=== PATIENT | male | born 1945 | race Caucasian/White ===

== ENCOUNTER 2019-09-22 16:28 | Emergency (ER) | payer MEDICARE, MEDICAID ==
[~2019-09-22 16:28] MED LIST: CARV3.123 PO; FURO20TA4 PO; LISI2.5T2 PO; OMEP40CA13 PO; POTA10TA15 PO; PRAV40TA3 PO; RIVA20TA PO
[2019-09-22] MEDS ORDERED: pantoprazole 40MG/NS 100ML BAG 100 ML IV ONE (19:10)
[2019-09-22] MEDS ORDERED: pantoprazole 40 MG vial IV ONE (19:10)
[2019-09-22 19:19] LABS: BASOPHILS # (AUTO) 0.1 X10'3 (0-0.2); EOSINOPHILS # (AUTO) 0.3 X10'3 (0-0.9); EOSINOPHILS % (AUTO) 2.6 % (0-6); HEMATOCRIT 29.6 % (42.0-52.0); LYMPHOCYTES # (AUTO) 2.1 X10'3 (1.1-4.8); MEAN CORPUSCULAR HEMOGLOBIN 32.2 PG (27.0-31.0); MEAN CORPUSCULAR HGB CONC 33.7 g/dL (33.0-36.5); MEAN CORPUSCULAR VOLUME 95.6 FL (78-98); MEAN PLATELET VOLUME 10.1 FL (7.4-10.4); MONOCYTES % (AUTO) 8.3 % (2-12); NEUTROPHILS # (AUTO) 8.3 X10'3 (1.8-7.7); NEUTROPHILS % (AUTO) 70.1 % (42-75); PLATELET COUNT 224 X10'3 (140-440); RED CELL DISTRIBUTION WIDTH 16.8 % (11.5-14.5); WHITE BLOOD COUNT 11.8 X10'3 (4.5-11.0)
[2019-09-22 19:26] LABS: PARTIAL THROMBOPLASTIN TIME 37 SECONDS (22-32)
[2019-09-22 19:28] LABS: ALANINE AMINOTRANSFERASE 32 U/L (12-78); ALBUMIN 4.6 G/DL (3.4-5.0); ALBUMIN/GLOBULIN RATIO 1.2 (1.1-1.5); ALKALINE PHOSPHATASE 140 IU/L (46-116); ANION GAP 13 (8-16); ASPARTATE AMINO TRANSFERASE 21 U/L (10-37); BILIRUBIN,TOTAL 0.9 MG/DL (0.1-1.0); BLOOD UREA NITROGEN 36 MG/DL (7-18); BUN/CREATININE RATIO 24.8 (5.4-32.0); CALCIUM 9.6 MG/DL (8.5-10.1); CHLORIDE 103 MMOL/L (99-107); CREATININE 1.45 MG/DL (0.60-1.10); GLUCOSE 97 MG/DL (70-104); SODIUM 140 MMOL/L (135-145); TOTAL CARBON DIOXIDE 24.1 MMOL/L (24-32); TOTAL PROTEIN 8.4 G/DL (6.4-8.2); eGFR 48 ML/MIN
--- NOTE | 2019-09-22 19:40 | NUR ---
JILL CHADWICK AT BEDSIDE FOR RECTAL EXAM.
--- NOTE | 2019-09-22 19:50 | NUR ---
PER [facility] CLINICAL UNIT EDUCATOR, "HOLD" OFF ON PROTONIX DRIP AND IVP DUE TO POSITIVE STOOL SAMPLE.
[2019-09-22 20:08] VITALS: BP 131/54
[2019-09-22 20:40] LABS: TOTAL CELLS COUNTED 100
[2019-09-22 20:41] LABS: ANISOCYTOSIS 1+; PLATELET ESTIMATE NORMAL; POLYCHROMASIA FEW
[2019-09-22 20:42] LABS: POIKILOCYTOSIS FEW; SPHEROCYTES FEW
== END 2019-09-22 20:26 | disposition home or self-care (01) ==
LOC: ER 16:29
DX: K92.1 Melena (principal); I48.91 Unspecified atrial fibrillation; I25.10 Atherosclerotic heart disease of native coronary artery without angina pectoris; I50.9 Heart failure, unspecified; J44.9 Chronic obstructive pulmonary disease, unspecified; E11.9 Type 2 diabetes mellitus without complications; Z95.1 Presence of aortocoronary bypass graft; Z95.0 Presence of cardiac pacemaker; Z88.8 Allergy status to other drugs, medicaments and biological substances; Z79.899 Other long term (current) drug therapy
CPT/HCPCS: 36415; 71045; 80053; 84484; 85025; 85610; 85730; 86885; 86900; 86901; 93005; 99284; C9113

== ENCOUNTER 2019-10-22 13:48 | Emergency (ER) | payer MEDICARE, MEDICAID ==
[~2019-10-22] VITALS: Ht 182.9 cm; Wt 90.0 kg
[2019-10-22] MEDS ORDERED: ATOR20TA PO (14:31)
[2019-10-22 14:34] LABS: BASOPHILS # (AUTO) 0.1 X10'3 (0-0.2); BASOPHILS % (AUTO) 0.9 % (0-1); EOSINOPHILS # (AUTO) 0.4 X10'3 (0-0.9); EOSINOPHILS % (AUTO) 5.1 % (0-6); HEMATOCRIT 26.1 % (42.0-52.0); HEMOGLOBIN 8.5 g/dl (14.0-17.9); LYMPHOCYTES # (AUTO) 1.5 X10'3 (1.1-4.8); LYMPHOCYTES % (AUTO) 20.1 % (21-51); MEAN CORPUSCULAR HEMOGLOBIN 28.6 PG (27.0-31.0); MEAN CORPUSCULAR HGB CONC 32.4 g/dL (33.0-36.5); MEAN CORPUSCULAR VOLUME 88.3 FL (78-98); MEAN PLATELET VOLUME 8.6 FL (7.4-10.4); MONOCYTES # (AUTO) 0.7 X10'3 (0-0.9); MONOCYTES % (AUTO) 9.1 % (2-12); NEUTROPHILS # (AUTO) 4.7 X10'3 (1.8-7.7); NEUTROPHILS % (AUTO) 64.8 % (42-75); PLATELET COUNT 304 X10'3 (140-440); RED BLOOD COUNT 2.96 X10'6 (4.70-6.10); RED CELL DISTRIBUTION WIDTH 20.1 % (11.5-14.5); WHITE BLOOD COUNT 7.3 X10'3 (4.5-11.0)
[2019-10-22 14:41] LABS: PARTIAL THROMBOPLASTIN TIME 42 SECONDS (22-32)
[2019-10-22 15:39] LABS: ANISOCYTOSIS 3+; HYPOCHROMASIA 1+; PLATELET ESTIMATE NORMAL
[2019-10-22 15:40] LABS: LARGE PLATELETS FEW
[2019-10-22 16:00] LABS: ALANINE AMINOTRANSFERASE 30 U/L (12-78); ALBUMIN 3.9 G/DL (3.4-5.0); ALBUMIN/GLOBULIN RATIO 1.1 (1.1-1.5); ALKALINE PHOSPHATASE 140 IU/L (46-116); ANION GAP 9 (8-16); ASPARTATE AMINO TRANSFERASE 18 U/L (10-37); BILIRUBIN,TOTAL 0.7 MG/DL (0.1-1.0); BLOOD UREA NITROGEN 25 MG/DL (7-18); BUN/CREATININE RATIO 17.9 (5.4-32.0); CALCIUM 9.2 MG/DL (8.5-10.1); CHLORIDE 107 MMOL/L (99-107); GLUCOSE 90 MG/DL (70-104); POTASSIUM 4.5 MMOL/L (3.5-5.1); SODIUM 141 MMOL/L (135-145); TOTAL CARBON DIOXIDE 25.3 MMOL/L (24-32); TOTAL PROTEIN 7.6 G/DL (6.4-8.2); eGFR 50 ML/MIN
[2019-10-22 16:30] VITALS: BP 135/66
[2019-10-22] MEDS ORDERED: MULT-1085 PO (16:53)
== END 2019-10-22 16:58 | disposition home or self-care (01) ==
LOC: ER 13:49
DX: D64.9 Anemia, unspecified (principal); G47.00 Insomnia, unspecified; R06.02 Shortness of breath; I48.91 Unspecified atrial fibrillation; I25.10 Atherosclerotic heart disease of native coronary artery without angina pectoris; I50.9 Heart failure, unspecified; J44.9 Chronic obstructive pulmonary disease, unspecified; E11.9 Type 2 diabetes mellitus without complications; Z95.1 Presence of aortocoronary bypass graft; Z95.0 Presence of cardiac pacemaker; Z98.890 Other specified postprocedural states; Z72.89 Other problems related to lifestyle; Z87.891 Personal history of nicotine dependence; Z88.8 Allergy status to other drugs, medicaments and biological substances; Z79.899 Other long term (current) drug therapy
CPT/HCPCS: 36415; 71045; 80053; 84484; 85025; 85610; 85730; 93005; 99284

== ENCOUNTER 2019-11-10 04:49 | Emergency (ER) | payer MEDICARE, MEDICAID ==
[~2019-11-10] VITALS: Ht 172.7 cm; Wt 86.4 kg
[~2019-11-10 04:49] MED LIST changes: +ATOR20TA PO; +MULT-1085 PO; -OMEP40CA13 PO; -PRAV40TA3 PO
[2019-11-10] MEDS ORDERED: diltiazem 30mg tablet PO ONE (05:05)
[2019-11-10] MEDS ORDERED: normal saline 1000ML IV soln IVB ONE (05:05)
[2019-11-10] MEDS ORDERED: diltiazem 5mg/ml 5ml inj. IV ONE ×2 (05:05→08:35)
[2019-11-10 05:29] LABS: ALANINE AMINOTRANSFERASE 93 U/L (12-78); ALBUMIN 4.2 G/DL (3.4-5.0); ALBUMIN/GLOBULIN RATIO 1.2 (1.1-1.5); ALKALINE PHOSPHATASE 157 IU/L (46-116); ANION GAP 10 (8-16); ASPARTATE AMINO TRANSFERASE 41 U/L (10-37); BILIRUBIN,TOTAL 0.8 MG/DL (0.1-1.0); BLOOD UREA NITROGEN 51 MG/DL (7-18); BUN/CREATININE RATIO 31.9 (5.4-32.0); CALCIUM 9.8 MG/DL (8.5-10.1); CHLORIDE 105 MMOL/L (99-107); POTASSIUM 5.1 MMOL/L (3.5-5.1); SODIUM 138 MMOL/L (135-145); TOTAL PROTEIN 7.8 G/DL (6.4-8.2); eGFR 43 ML/MIN
[2019-11-10 05:37] LABS: MAGNESIUM 2.2 MG/DL (1.5-2.4); TROPONIN I 0.05 NG/ML (0.0-0.05)
[2019-11-10 05:39] LABS: GLUCOSE 123 MG/DL (70-104)
[2019-11-10] MEDS ORDERED: diphenhydrAMINE 50 mg/ml inj IV ONE (05:50)
[2019-11-10] MEDS ORDERED: metoclopramide 5 mg/ml inj IV ONE (05:50)
[2019-11-10] MEDS ORDERED: LORazepam 2 mg/ml vial IV ONE (05:50)
[2019-11-10] MEDS ORDERED: mag hydrox/Alum hydrox/simeth 30ml oral suspension PO ONE (05:55)
[2019-11-10] MEDS ORDERED: LIDOcaine Viscous 15ml cup MM ONE (05:55)
[2019-11-10 05:59] LABS: HEMATOCRIT 29.9 % (42.0-52.0); HEMOGLOBIN 9.4 g/dl (14.0-17.9); MEAN CORPUSCULAR HEMOGLOBIN 25.9 PG (27.0-31.0); MEAN CORPUSCULAR HGB CONC 31.4 g/dL (33.0-36.5); MEAN CORPUSCULAR VOLUME 82.5 FL (78-98); MEAN PLATELET VOLUME 8.2 FL (7.4-10.4); PLATELET COUNT 254 X10'3 (140-440); RED BLOOD COUNT 3.62 X10'6 (4.70-6.10); RED CELL DISTRIBUTION WIDTH 22.8 % (11.5-14.5); WHITE BLOOD COUNT 12.4 X10'3 (4.5-11.0)
--- NOTE | 2019-11-10 06:29 | NUR ---
During change of shift, Mikey SHUKLA was on phone with [employer] in attempts to get pacemaker interrogated. Message was left by Mikey at that time.
--- NOTE | 2019-11-10 06:30 | NUR ---
[employer] rep returned call and is on her way to dept.
--- NOTE | 2019-11-10 07:59 | NUR ---
[employer] Rep at bedside.
--- NOTE | 2019-11-10 08:12 | NUR ---
Repeat EKG per MD Galdamez
[2019-11-10 09:26] VITALS: BP 123/53
[2019-11-10 10:23] LABS: NUCLEATED RED BLOOD CELLS 2 /100WBC (0-0); PLATELET ESTIMATE NORMAL; TOTAL CELLS COUNTED 100
[2019-11-10 10:24] LABS: ANISOCYTOSIS 3+; HYPOCHROMASIA 1+
[2019-11-10 10:25] LABS: LARGE PLATELETS FEW
[2019-11-10 10:26] LABS: POLYCHROMASIA FEW
== END 2019-11-10 09:28 | disposition home or self-care (01) ==
LOC: ER 04:50
DX: I48.91 Unspecified atrial fibrillation (principal); I25.10 Atherosclerotic heart disease of native coronary artery without angina pectoris; I50.9 Heart failure, unspecified; J44.9 Chronic obstructive pulmonary disease, unspecified; E11.9 Type 2 diabetes mellitus without complications; Z95.1 Presence of aortocoronary bypass graft; Z95.0 Presence of cardiac pacemaker; Z72.89 Other problems related to lifestyle; Z87.891 Personal history of nicotine dependence
CPT/HCPCS: 36415; 71045; 80053; 83735; 83880; 84484; 85025; 86885; 86900; 86901; 93005; 96374; 99285; J7030; 29505; J3490

== ENCOUNTER 2020-01-19 10:26 | Emergency (ER) | payer MEDICARE, MEDICAID ==
[~2020-01-19] VITALS: Ht 182.9 cm; Wt 86.4 kg
[2020-01-19 11:19] LABS: BASOPHILS % (AUTO) 0.5 % (0-1); EOSINOPHILS # (AUTO) 0.2 X10'3 (0-0.9); EOSINOPHILS % (AUTO) 2.6 % (0-6); HEMATOCRIT 33.2 % (42.0-52.0); HEMOGLOBIN 10.2 g/dl (14.0-17.9); LYMPHOCYTES # (AUTO) 0.9 X10'3 (1.1-4.8); LYMPHOCYTES % (AUTO) 10.8 % (21-51); MEAN CORPUSCULAR HEMOGLOBIN 26.1 PG (27.0-31.0); MEAN CORPUSCULAR HGB CONC 30.9 g/dL (33.0-36.5); MEAN CORPUSCULAR VOLUME 84.4 FL (78-98); MEAN PLATELET VOLUME 9.3 FL (7.4-10.4); MONOCYTES % (AUTO) 11.2 % (2-12); NEUTROPHILS # (AUTO) 6.6 X10'3 (1.8-7.7); NEUTROPHILS % (AUTO) 74.9 % (42-75); PLATELET COUNT 189 X10'3 (140-440); RED BLOOD COUNT 3.93 X10'6 (4.70-6.10); RED CELL DISTRIBUTION WIDTH 25.8 % (11.5-14.5); WHITE BLOOD COUNT 8.8 X10'3 (4.5-11.0)
[2020-01-19 11:34] LABS: ALANINE AMINOTRANSFERASE 27 U/L (12-78); ALBUMIN 3.4 G/DL (3.4-5.0); ALBUMIN/GLOBULIN RATIO 1.1 (1.1-1.5); ALKALINE PHOSPHATASE 143 IU/L (46-116); ANION GAP 8 (8-16); ASPARTATE AMINO TRANSFERASE 17 U/L (10-37); BLOOD UREA NITROGEN 39 MG/DL (7-18); BUN/CREATININE RATIO 25.2 (5.4-32.0); CALCIUM 9.4 MG/DL (8.5-10.1); CHLORIDE 108 MMOL/L (99-107); CREATININE 1.55 MG/DL (0.60-1.10); GLUCOSE 106 MG/DL (70-104); POTASSIUM 5.1 MMOL/L (3.5-5.1); SODIUM 139 MMOL/L (135-145); TOTAL CARBON DIOXIDE 22.9 MMOL/L (24-32); TOTAL PROTEIN 6.6 G/DL (6.4-8.2); eGFR 44 ML/MIN
[2020-01-19] MEDS ORDERED: furosemide 10 MG/1 ML 10ml inj IV ONE (12:05)
[2020-01-19 12:42] LABS: ANISOCYTOSIS 3+; PLATELET ESTIMATE NORMAL; POLYCHROMASIA 1+
[2020-01-19 12:43] LABS: HYPOCHROMASIA 1+
[2020-01-19] MEDS ORDERED: FURO40TA4 PO (13:08)
[2020-01-19 13:20] VITALS: BP 124/74
== END 2020-01-19 13:21 | disposition home or self-care (01) ==
LOC: ER 10:26
DX: N50.89 Other specified disorders of the male genital organs (principal); R60.0 Localized edema; I48.91 Unspecified atrial fibrillation; I25.10 Atherosclerotic heart disease of native coronary artery without angina pectoris; I50.9 Heart failure, unspecified; J44.9 Chronic obstructive pulmonary disease, unspecified; E11.9 Type 2 diabetes mellitus without complications; Z95.1 Presence of aortocoronary bypass graft; Z95.0 Presence of cardiac pacemaker; Z98.890 Other specified postprocedural states; Z88.8 Allergy status to other drugs, medicaments and biological substances; Z79.01 Long term (current) use of anticoagulants; Z79.899 Other long term (current) drug therapy
CPT/HCPCS: 36415; 71045; 80053; 83880; 84484; 85025; 93005; 96374; 99285; J1940

== ENCOUNTER 2020-02-05 15:36 | Inpatient (IN) | payer MEDICARE, MEDICAID ==
[~2020-02-05] VITALS: Ht 182.9 cm; Wt 81.8 kg
[~2020-02-05 15:36] MED LIST changes: +FURO40TA4 PO
[2020-02-05 16:06] LABS: BASOPHILS # (AUTO) 0.1 X10'3 (0-0.2); BASOPHILS % (AUTO) 0.6 % (0-1); EOSINOPHILS # (AUTO) 0.2 X10'3 (0-0.9); EOSINOPHILS % (AUTO) 1.8 % (0-6); HEMATOCRIT 35.5 % (42.0-52.0); LYMPHOCYTES # (AUTO) 0.6 X10'3 (1.1-4.8); LYMPHOCYTES % (AUTO) 6.5 % (21-51); MEAN CORPUSCULAR HEMOGLOBIN 26.2 PG (27.0-31.0); MEAN CORPUSCULAR HGB CONC 31.1 g/dL (33.0-36.5); MEAN CORPUSCULAR VOLUME 84.5 FL (78-98); MEAN PLATELET VOLUME 7.9 FL (7.4-10.4); MONOCYTES # (AUTO) 0.8 X10'3 (0-0.9); MONOCYTES % (AUTO) 8.3 % (2-12); NEUTROPHILS # (AUTO) 8.1 X10'3 (1.8-7.7); NEUTROPHILS % (AUTO) 82.8 % (42-75); PLATELET COUNT 330 X10'3 (140-440); RED CELL DISTRIBUTION WIDTH 24.9 % (11.5-14.5); WHITE BLOOD COUNT 9.8 X10'3 (4.5-11.0)
[2020-02-05 16:21] LABS: ANION GAP 11 (8-16); BLOOD UREA NITROGEN 43 MG/DL (7-18); CHLORIDE 103 MMOL/L (99-107); CREATININE 1.69 MG/DL (0.60-1.10); GLUCOSE 115 MG/DL (70-104); SODIUM 137 MMOL/L (135-145); TOTAL CARBON DIOXIDE 23.5 MMOL/L (24-32)
[2020-02-05 16:22] LABS: ALANINE AMINOTRANSFERASE 127 U/L (12-78); ALBUMIN 3.4 G/DL (3.4-5.0); ALBUMIN/GLOBULIN RATIO 0.9 (1.1-1.5); ALKALINE PHOSPHATASE 236 IU/L (46-116); ASPARTATE AMINO TRANSFERASE 44 U/L (10-37); BILIRUBIN,TOTAL 2.1 MG/DL (0.1-1.0); BUN/CREATININE RATIO 25.4 (5.4-32.0); CALCIUM 9.3 MG/DL (8.5-10.1); eGFR 40 ML/MIN
[2020-02-05 16:31] LABS: PLATELET ESTIMATE NORMAL
[2020-02-05 16:32] LABS: ANISOCYTOSIS 3+; HYPOCHROMASIA 1+; MICROCYTOSIS 1+; POLYCHROMASIA FEW
[2020-02-05] MEDS ORDERED: furosemide 10 MG/1 ML 10ml inj IV ONE (17:05)
--- NOTE | 2020-02-05 17:34 | NUR ---
pump house technician at bedside.will medicate the pt, when pump house technician is done .
--- NOTE | 2020-02-05 17:48 | NUR ---
pt bp 119/76,hr 108,spo2 100%on ra.pt urinated 250 ml .medicated with lasix as per md order ,primarynurse gab hazel aware.
--- NOTE | 2020-02-05 17:55 | NUR ---
called daughter barrie at [phone] to verify the dose for lasix whether he takes 40 mg or 20 mg ? as per daughter he stoped taking 40 mg 2 days ago as he was getting more weak ,pt started with 20 mg x2 days ago.
[2020-02-05] MEDS ORDERED: magnesium hydroxide 30ml (MOM) UD suspension PO PRN (19:35)
[2020-02-05] MEDS ORDERED: acetaminophen 325mg tablet PO PRN (19:35)
[2020-02-05] MEDS ORDERED: potassium Cl 20 mEq SR tablet PO PRN ×2 (19:35)
[2020-02-05] MEDS ORDERED: potassium CL 10mEq/100ml bag 100 ML IV PRN ×2 (19:35)
[2020-02-05] MEDS ORDERED: ondansetron/PF 4mg/2ml inj IV PRN (19:35)
[2020-02-05] MEDS ORDERED: mag hydrox/Alum hydrox/simeth 30ml oral suspension PO PRN (19:35)
[2020-02-05] MEDS: furosemide 10 MG/1 ML 10ml inj IV SCH (20:00)
[2020-02-05] MEDS: K and/or MAG REPLACEMENT MC SCH (20:00)
[2020-02-05] MEDS: carVEDilol 3.125mg tablet PO SCH (21:15)
[2020-02-05] MEDS: atorvastatin 20mg tablet PO SCH (21:15)
[2020-02-06] MEDS ORDERED: temazepam 15mg capsule PO ONE ×2 (00:55→23:45)
[2020-02-06 04:28] LABS: BASOPHILS % (AUTO) 0.3 % (0-1); EOSINOPHILS # (AUTO) 0.1 X10'3 (0-0.9); HEMATOCRIT 30.3 % (42.0-52.0); HEMOGLOBIN 9.4 g/dl (14.0-17.9); LYMPHOCYTES # (AUTO) 0.4 X10'3 (1.1-4.8); LYMPHOCYTES % (AUTO) 5.8 % (21-51); MEAN CORPUSCULAR HEMOGLOBIN 26.2 PG (27.0-31.0); MEAN CORPUSCULAR HGB CONC 31.1 g/dL (33.0-36.5); MEAN CORPUSCULAR VOLUME 84.3 FL (78-98); MEAN PLATELET VOLUME 7.9 FL (7.4-10.4); MONOCYTES # (AUTO) 0.7 X10'3 (0-0.9); MONOCYTES % (AUTO) 8.9 % (2-12); NEUTROPHILS # (AUTO) 6.2 X10'3 (1.8-7.7); PLATELET COUNT 261 X10'3 (140-440); RED BLOOD COUNT 3.59 X10'6 (4.70-6.10); RED CELL DISTRIBUTION WIDTH 25.1 % (11.5-14.5); WHITE BLOOD COUNT 7.5 X10'3 (4.5-11.0)
[2020-02-06 04:37] LABS: ALANINE AMINOTRANSFERASE 84 U/L (12-78); ALBUMIN 2.6 G/DL (3.4-5.0); ALBUMIN/GLOBULIN RATIO 0.8 (1.1-1.5); ALKALINE PHOSPHATASE 176 IU/L (46-116); ANION GAP 12 (8-16); ASPARTATE AMINO TRANSFERASE 35 U/L (10-37); BILIRUBIN,TOTAL 2.1 MG/DL (0.1-1.0); BLOOD UREA NITROGEN 40 MG/DL (7-18); BUN/CREATININE RATIO 24.8 (5.4-32.0); CALCIUM 8.6 MG/DL (8.5-10.1); CHLORIDE 104 MMOL/L (99-107); CREATININE 1.61 MG/DL (0.60-1.10); GLUCOSE 82 MG/DL (70-104); POTASSIUM 4.2 MMOL/L (3.5-5.1); SODIUM 140 MMOL/L (135-145); TOTAL CARBON DIOXIDE 24.5 MMOL/L (24-32); TOTAL PROTEIN 5.8 G/DL (6.4-8.2); eGFR 42 ML/MIN
[2020-02-06 06:00] VITALS: BP 143/67
--- NOTE | 2020-02-06 06:38 | NUR ---
Problems reprioritized. Patient report given, questions answered & plan of care reviewed with Candace SHUKLA.
[2020-02-06 06:53] LABS: ANISOCYTOSIS 3+; HYPOCHROMASIA 1+; PLATELET ESTIMATE NORMAL; POLYCHROMASIA FEW
[2020-02-06 06:54] LABS: MICROCYTOSIS 1+; TARGET CELLS FEW
[2020-02-06] MEDS: K and/or MAG REPLACEMENT MC SCH ×2 (07:23→19:30)
[2020-02-06] MEDS: furosemide 10 MG/1 ML 10ml inj IV SCH ×2 (08:31→19:29)
[2020-02-06] MEDS: multivitamins, therapeutics tablet PO SCH (08:31)
[2020-02-06] MEDS: rivaroxaban 20mg tablet PO SCH (08:32)
[2020-02-06] MEDS: lisinopril 2.5mg tablet PO SCH (08:32)
[2020-02-06 11:00] VITALS: BP 107/59
--- NOTE | 2020-02-06 12:32 | NUR ---
Daughter Irina is informed of current condition and treatment plan.
[2020-02-06 12:58] LABS: D-DIMER 2.25 MG/L FEU (0-0.50)
[2020-02-06 15:55] VITALS: BP 94/41
[2020-02-06] MEDS ORDERED: FERR324T2 PO (15:56)
[2020-02-06 18:00] VITALS: BP 104/57
--- NOTE | 2020-02-06 18:00 | NUR ---
Patient in room PCU 3014. I have received report from Candace SHUKLA and had the opportunity to ask questions and assume patient care.
[2020-02-06] MEDS: carVEDilol 3.125mg tablet PO SCH (19:29)
[2020-02-06] MEDS: atorvastatin 20mg tablet PO SCH (19:29)
[2020-02-06 22:00] VITALS: BP 95/68
--- NOTE | 2020-02-07 02:30 | NUR ---
Refused 0200 vitals. Patient stated that he wanted to sleep and not wake him up for vital signs.
[2020-02-07 06:00] VITALS: BP 90/50
--- NOTE | 2020-02-07 06:27 | NUR ---
Patient in room PCU 3014. I have received report from ilir ozuna and had the opportunity to ask questions and assume patient care.
--- NOTE | 2020-02-07 06:28 | NUR ---
Problems reprioritized. Patient report given, questions answered & plan of care reviewed with Romeo RN.
[2020-02-07 06:54] LABS: ALANINE AMINOTRANSFERASE 70 U/L (12-78); ALBUMIN 2.5 G/DL (3.4-5.0); ALBUMIN/GLOBULIN RATIO 0.8 (1.1-1.5); ALKALINE PHOSPHATASE 175 IU/L (46-116); ANION GAP 8 (8-16); ASPARTATE AMINO TRANSFERASE 19 U/L (10-37); BILIRUBIN,TOTAL 1.6 MG/DL (0.1-1.0); BLOOD UREA NITROGEN 41 MG/DL (7-18); BUN/CREATININE RATIO 26.1 (5.4-32.0); CALCIUM 8.5 MG/DL (8.5-10.1); CHLORIDE 103 MMOL/L (99-107); CREATININE 1.57 MG/DL (0.60-1.10); GLUCOSE 114 MG/DL (70-104); POTASSIUM 3.6 MMOL/L (3.5-5.1); SODIUM 136 MMOL/L (135-145); TOTAL CARBON DIOXIDE 24.7 MMOL/L (24-32); TOTAL PROTEIN 5.6 G/DL (6.4-8.2); eGFR 44 ML/MIN
[2020-02-07 07:12] LABS: BASOPHILS % (AUTO) 0.5 % (0-1); EOSINOPHILS # (AUTO) 0.3 X10'3 (0-0.9); EOSINOPHILS % (AUTO) 3.6 % (0-6); HEMATOCRIT 28.8 % (42.0-52.0); HEMOGLOBIN 9.1 g/dl (14.0-17.9); LYMPHOCYTES # (AUTO) 0.6 X10'3 (1.1-4.8); LYMPHOCYTES % (AUTO) 6.5 % (21-51); MEAN CORPUSCULAR HEMOGLOBIN 26.5 PG (27.0-31.0); MEAN CORPUSCULAR HGB CONC 31.7 g/dL (33.0-36.5); MEAN CORPUSCULAR VOLUME 83.6 FL (78-98); MONOCYTES # (AUTO) 0.9 X10'3 (0-0.9); MONOCYTES % (AUTO) 9.8 % (2-12); NEUTROPHILS # (AUTO) 7.1 X10'3 (1.8-7.7); NEUTROPHILS % (AUTO) 79.6 % (42-75); PLATELET COUNT 271 X10'3 (140-440); RED BLOOD COUNT 3.44 X10'6 (4.70-6.10); RED CELL DISTRIBUTION WIDTH 24.3 % (11.5-14.5); WHITE BLOOD COUNT 8.9 X10'3 (4.5-11.0)
[2020-02-07 07:43] VITALS: BP 104/55
[2020-02-07] MEDS: furosemide 10 MG/1 ML 10ml inj IV SCH (07:55)
[2020-02-07] MEDS: multivitamins, therapeutics tablet PO SCH (07:55)
[2020-02-07] MEDS: rivaroxaban 20mg tablet PO SCH (07:56)
[2020-02-07 07:57] LABS: HYPOCHROMASIA 1+; PLATELET ESTIMATE NORMAL; POLYCHROMASIA 1+
[2020-02-07] MEDS: lisinopril 2.5mg tablet PO SCH (07:57)
[2020-02-07 07:58] LABS: ANISOCYTOSIS 3+; BURR CELLS 1+; SCHISTOCYTES FEW; TARGET CELLS 1+
[2020-02-07] MEDS: K and/or MAG REPLACEMENT MC SCH (08:00)
[2020-02-07 11:00] VITALS: BP 91/52
[2020-02-07] MEDS ORDERED: FURO-150 PO (11:59)
--- NOTE | 2020-02-11 11:44 | NUR ---
Case Management DC follow up: Spoke to pt via telephone. s/p: generalized weakness, CHF. Reports: "feeling a lot better" Denies: emergent/worsening SOB, resp distress, acute/persistent CP, RYDER, blurry vision, N/V, emergent general pain, abd tenderness or distention, syncope, fever, unexplained bruising, bleeding. pt states gets a little dizzy when stands up. Went over orthostatic hypotension protocol as a precaution to higher dose of Lasix. pt verbalizes understanding and compliance. Verbalizes understanding of s/s that would warrant 9-11/ER visit for further evaluation. Verbalizes understanding of current/new Rx & why prescribed; taking as ordered, no ase noted r/t polypharmacy. Acknowledges need to follow-up/keep appts w/PCP/[facility]; pt will ask about sores that itch on neck to treat symptomatically as pt is having trouble sleeping due to the itching/agrees to call to schedule appt. Byproducts Operator/Chris scheduled for next week. Questions answered, needs met at DC. No further questions at this time.
== END 2020-02-07 15:30 | disposition home or self-care (01) | DRG 292 ==
LOC: ER 15:36 → ED HOLD 19:35 → UNDOADMIN 20:03 → ED HOLD 20:03 → PCU 3S 20:30
PROVIDERS: ADMIT Internal Medicine; ATTEND Internal Medicine
DX: I50.23 Acute on chronic systolic (congestive) heart failure (principal); N17.9 Acute kidney failure, unspecified; E78.00 Pure hypercholesterolemia, unspecified; E78.5 Hyperlipidemia, unspecified; I50.82 Biventricular heart failure; I25.10 Atherosclerotic heart disease of native coronary artery without angina pectoris; I35.0 Nonrheumatic aortic (valve) stenosis; I48.0 Paroxysmal atrial fibrillation; D63.8 Anemia in other chronic diseases classified elsewhere; I73.9 Peripheral vascular disease, unspecified; J44.9 Chronic obstructive pulmonary disease, unspecified; N18.3 Chronic kidney disease, stage 3 (moderate); Z82.3 Family history of stroke; Z82.49 Family history of ischemic heart disease and other diseases of the circulatory system; Z86.14 Personal history of Methicillin resistant Staphylococcus aureus infection; Z79.01 Long term (current) use of anticoagulants; Z79.899 Other long term (current) drug therapy; Z86.73 Personal history of transient ischemic attack (TIA), and cerebral infarction without residual deficits; Z87.891 Personal history of nicotine dependence; Z95.1 Presence of aortocoronary bypass graft; Z95.810 Presence of automatic (implantable) cardiac defibrillator
CPT/HCPCS: 36415; 71045; 76700; 78580; 80053; 83880; 84484; 85025; 85379; 87081; 93005; 93306; 96374; 96375; 99285; A9540; G0378; J1940

== ENCOUNTER 2021-06-29 12:38 | Inpatient (IN) | payer MEDICARE, MEDICAID ==
[~2021-06-29] VITALS: Ht 177.8 cm; Wt 81.0 kg
[2021-06-29] VITALS (7 sets, daily range): BP systolic 102–124; BP diastolic 43–58
[~2021-06-29 12:38] MED LIST changes: +AMIO200T61 PO; -ATOR20TA PO; +ATOR20TA66 PO; +CARV-50 PO; -CARV3.123 PO; +CLOB15CR4 TOP; +FURO-149 PO; -FURO20TA4 PO; -FURO40TA4 PO; +LISI2.5T14 PO; -LISI2.5T2 PO; -MULT-1085 PO; +PANT-47 PO; +POTA10TA10 PO; -POTA10TA15 PO
[2021-06-29 13:40] LABS: BASOPHILS # (AUTO) 0.1 X10'3 (0-0.2); BASOPHILS % (AUTO) 0.9 % (0-1); EOSINOPHILS # (AUTO) 0.3 X10'3 (0-0.9); EOSINOPHILS % (AUTO) 4.8 % (0-6); HEMATOCRIT 23.2 % (42.0-52.0); HEMOGLOBIN 7.4 g/dl (14.0-17.9); LYMPHOCYTES # (AUTO) 0.6 X10'3 (1.1-4.8); LYMPHOCYTES % (AUTO) 8.7 % (21-51); MEAN CORPUSCULAR HEMOGLOBIN 31.2 PG (27.0-31.0); MEAN CORPUSCULAR HGB CONC 31.8 g/dL (33.0-36.5); MEAN CORPUSCULAR VOLUME 98.3 FL (78-98); MEAN PLATELET VOLUME 8.4 FL (7.4-10.4); MONOCYTES % (AUTO) 13.6 % (2-12); PLATELET COUNT 205 X10'3 (140-440); RED BLOOD COUNT 2.36 X10'6 (4.70-6.10)
[2021-06-29 13:59] LABS: ALANINE AMINOTRANSFERASE 18 U/L (12-78); ALBUMIN 2.6 G/DL (3.4-5.0); ALBUMIN/GLOBULIN RATIO 0.7 (1.1-1.5); ALKALINE PHOSPHATASE 179 IU/L (46-116); ANION GAP 11 (8-16); ASPARTATE AMINO TRANSFERASE 20 U/L (10-37); BILIRUBIN,TOTAL 1.1 MG/DL (0.1-1.0); BLOOD UREA NITROGEN 41 MG/DL (7-18); BUN/CREATININE RATIO 20.6 (5.4-32.0); CALCIUM 8.4 MG/DL (8.5-10.1); CHLORIDE 110 MMOL/L (99-107); CREATININE 1.99 MG/DL (0.60-1.10); GLUCOSE 93 MG/DL (70-104); LIPASE 158 U/L (73-393); POTASSIUM 4.7 MMOL/L (3.5-5.1); SODIUM 145 MMOL/L (135-145); TOTAL CARBON DIOXIDE 23.9 MMOL/L (24-32); TOTAL PROTEIN 6.1 G/DL (6.4-8.2); eGFR 33 ML/MIN
[2021-06-29 14:09] LABS: PLATELET ESTIMATE NORMAL
[2021-06-29 14:10] LABS: ANISOCYTOSIS 3+; ELLIPTOCYTES FEW; HYPOCHROMASIA 1+; STOMATOCYTES 1+
[2021-06-29 14:11] LABS: ACANTHOCYTES FEW; LARGE PLATELETS FEW
[2021-06-29 14:12] LABS: POLYCHROMASIA 1+; SCHISTOCYTES FEW
[2021-06-29 14:21] LABS: CLARITY,URINE CLEAR (Clear); COLOR,URINE STRAW (Yellow); UA COLLECTION TYPE URINAL
[2021-06-29 14:22] LABS: GLUCOSE, URINE NEGATIVE (Neg); KETONES,URINE NEGATIVE (Neg); LEUKOCYTE ESTERASE ,URINE NEGATIVE (Neg); NITRITES, URINE NEGATIVE (Neg); OCCULT BLOOD,URINE NEGATIVE (Neg); PH,URINE 6.5 (4.8-8.0); PROTEIN,URINE NEGATIVE (Neg); UROBILINOGEN,URINE 0.2 E.U/dL (0.2-1.0)
[2021-06-29 15:11] LABS: MAGNESIUM 2.3 MG/DL (1.5-2.4)
[2021-06-29 15:45] LABS: PARTIAL THROMBOPLASTIN TIME 44 SECONDS (22-32)
[2021-06-29 15:57] LABS: OCCULT BLOOD STOOL POSITIVE (Neg)
[2021-06-29] MEDS ORDERED: magnesium hydroxide 30ml (MOM) UD suspension PO PRN (16:05)
[2021-06-29] MEDS ORDERED: mag hydrox/Alum hydrox/simeth 30ml oral suspension PO PRN (16:05)
[2021-06-29] MEDS ORDERED: ondansetron/PF 4mg/2ml inj IV PRN (16:05)
[2021-06-29] MEDS ORDERED: acetaminophen 325mg tablet PO PRN (16:05)
[2021-06-29] MEDS ORDERED: FERR-116 PO (17:09)
[2021-06-29] MEDS ORDERED: FURO40TA4 PO (17:12)
[2021-06-29] MEDS: ferrous sulfate 325mg tablet PO SCH (20:24)
[2021-06-29] MEDS: docusate sod 100mg capsule PO SCH (20:25)
[2021-06-29] MEDS: furosemide 10 MG/1 ML 10ml inj IV SCH (20:33)
--- NOTE | 2021-06-29 20:37 | NUR ---
patient wheeled to room 3013B. Patient able to transfer self to bed in no apparent distress. Initial VS as follow BP112/48, HR 64, RR 17, O2sat 98 RA. Patient denies pain. Patient attached to continuous tele monitor # 30. ordered medication given.Admission assessment documented. 2 RN skin check done.Teach patient about surrounding. Patient verbalizes understanding. All safety measures implemented.Will continue to monitor patient.
[2021-06-29] MEDS: lisinopril 2.5mg tablet PO SCH (22:03)
[2021-06-30] VITALS (13 sets, daily range): BP systolic 78–114; BP diastolic 32–74
[2021-06-30 03:25] LABS: BASOPHILS # (AUTO) 0.1 X10'3 (0-0.2); BASOPHILS % (AUTO) 0.8 % (0-1); EOSINOPHILS # (AUTO) 0.4 X10'3 (0-0.9); EOSINOPHILS % (AUTO) 5.5 % (0-6); LYMPHOCYTES # (AUTO) 0.7 X10'3 (1.1-4.8); MEAN CORPUSCULAR HEMOGLOBIN 30.9 PG (27.0-31.0); MEAN CORPUSCULAR HGB CONC 31.6 g/dL (33.0-36.5); MEAN CORPUSCULAR VOLUME 97.5 FL (78-98); MEAN PLATELET VOLUME 8.6 FL (7.4-10.4); MONOCYTES # (AUTO) 0.8 X10'3 (0-0.9); MONOCYTES % (AUTO) 11.9 % (2-12); NEUTROPHILS # (AUTO) 4.9 X10'3 (1.8-7.7); NEUTROPHILS % (AUTO) 71.8 % (42-75); PLATELET COUNT 216 X10'3 (140-440); RED BLOOD COUNT 2.23 X10'6 (4.70-6.10); RED CELL DISTRIBUTION WIDTH 21.8 % (11.5-14.5); WHITE BLOOD COUNT 6.9 X10'3 (4.5-11.0)
[2021-06-30 03:31] LABS: HEMATOCRIT 21.7 % (42.0-52.0); HEMOGLOBIN 6.9 g/dl (14.0-17.9)
--- NOTE | 2021-06-30 03:33 | NUR ---
Dr. Manriquez called to report critical H&H6 RESPECTIVELY 6.9 AND 21.7 REPORTED BY LAB. ASKS" DOES THE PATIENT HAS EVIDENCE OF ACTIVE BLEEDING"? I ANSWERED NO. HE THEN SAID "THANK YOU. WILL LEAVE IT TO THE MORNING" PATIENT IS CURRENTLY STABLE WILL CONTINUE MONITOR
--- NOTE | 2021-06-30 03:33 | NUR ---
CRITICAL H&H REPORTED TO DR. GONSALVES. CHARGE MADE AWARE. NO NEW ORDERS GIVEN. WILL CONTINUE TO MONITOR PATIENT. Addendum: 06/30/21 at 0406 by Veronica Carnes RN CRITICAL H&H REPORTED TO DR. GONSALVES. CHARGE MADE AWARE. NO NEW ORDERS GIVEN. WILL CONTINUE TO MONITOR PATIENT. GAYLA PERKINS
[2021-06-30 03:35] LABS: ALANINE AMINOTRANSFERASE 17 U/L (12-78); ALBUMIN 2.6 G/DL (3.4-5.0); ALBUMIN/GLOBULIN RATIO 0.8 (1.1-1.5); ALKALINE PHOSPHATASE 167 IU/L (46-116); ANION GAP 6 (8-16); ASPARTATE AMINO TRANSFERASE 14 U/L (10-37); BILIRUBIN,TOTAL 1.2 MG/DL (0.1-1.0); BLOOD UREA NITROGEN 44 MG/DL (7-18); BUN/CREATININE RATIO 19.8 (5.4-32.0); CALCIUM 8.9 MG/DL (8.5-10.1); CHLORIDE 105 MMOL/L (99-107); CREATININE 2.22 MG/DL (0.60-1.10); GLUCOSE 88 MG/DL (70-104); SODIUM 138 MMOL/L (135-145); TOTAL PROTEIN 5.8 G/DL (6.4-8.2); eGFR 29 ML/MIN
--- NOTE | 2021-06-30 06:48 | NUR ---
Patient in room PCU 3013. I have received report from Kinga SHUKLA and had the opportunity to ask questions and assume patient care. pt supine in bed, watching TV with headphones in ears. pt alert to voice. no palor noted. pulses palpable. pt hypotensive 80s/50s. Pt alert, placed in trendelenburg position.
--- NOTE | 2021-06-30 07:04 | NUR ---
unable to locate manual blood pressure cuff on Telemetry floor, med surg floor, charge nurse notified. went down to ER where manual cuff finally located. pt manual blood pressure : 112/54; HR 74. pt alert and verbal, in mild trendelenberg per pt request. no s/sx acute distress.
--- NOTE | 2021-06-30 07:10 | NUR ---
112/54 manual blood pressure. pt mild trendelenberg. pt alert. no s/sx acute distress
[2021-06-30] MEDS: carVEDilol 12.5mg tablet PO SCH (08:00)
[2021-06-30] MEDS: atorvastatin 20mg tablet PO SCH (09:44)
[2021-06-30] MEDS: ferrous sulfate 325mg tablet PO SCH ×2 (09:45→21:32)
[2021-06-30] MEDS: amiodarone 200mg tablet PO SCH (09:46)
[2021-06-30] MEDS: potassium chloride 10mEq ER tablet PO SCH (09:47)
[2021-06-30] MEDS: docusate sod 100mg capsule PO SCH ×2 (09:49→21:33)
[2021-06-30] MEDS: furosemide 10 MG/1 ML 10ml inj IV SCH (09:53)
--- NOTE | 2021-06-30 14:26 | NUR ---
1 unit blood transfusion complete. no reaction noted. blood pressure remains soft.
--- NOTE | 2021-06-30 18:13 | NUR ---
Patient in room U 3013. I have received report from Kinga SHUKLA and had the opportunity to ask questions and assume patient care. Pt sitting up in bed, breathing easy, alert to voice. no s/sx acute distress. Student documentation: I have reviewed and agree with all interventions, assessments performed and documented by Vera LAZCANO. Student Medication Administration: For this medication-pass time frame, all medication were reviewed, dispensed, administered and documented per hospital policy by Vera LAZCANO. Addendum: 06/30/21 at 1822 by Pamella Nguyen RN Problems reprioritized. Patient report given, questions answered & plan of care reviewed with Kinga SHUKLA
[2021-06-30] MEDS: furosemide 40mg/4ml inj IV SCH (21:36)
[2021-06-30] MEDS: lisinopril 2.5mg tablet PO SCH (21:39)
[2021-06-30] MEDS: pantoprazole 40MG/NS 100ML BAG 100 ML IV SCH (21:40)
[2021-07-01] VITALS (12 sets, daily range): BP systolic 90–142; BP diastolic 31–67
[2021-07-01] MEDS: pantoprazole 40MG/NS 100ML BAG 100 ML IV SCH ×6 (02:58→23:11)
--- NOTE | 2021-07-01 06:11 | NUR ---
Patient in room PCU 3013. I have received report from Kinga SHUKLA and had the opportunity to ask questions and assume patient care. Pt supine to right side, head phones in, alert to nurses movement in the room, no sob, safety measrues in place. no s/sx acute distress
--- NOTE | 2021-07-01 06:15 | NUR ---
PATIENT RESTING IN BED ASLEEP IN NO APPARENT DISTRESS. PATIENT ALERT TO NAME CALLED. PATIENT REMAIN NPO. PROTONIX GTTS RUNNING. REPORT GIVEN TO CARMEN SHUKLA. RN HAD THE OPPORTUNITY TO ASK QUESTION ASSUMES CARE. ALL SAFETY MEASURES ARE IN PLACE.
[2021-07-01 06:38] LABS: BASOPHILS # (AUTO) 0.1 X10'3 (0-0.2); BASOPHILS % (AUTO) 0.7 % (0-1); EOSINOPHILS # (AUTO) 0.4 X10'3 (0-0.9); EOSINOPHILS % (AUTO) 4.6 % (0-6); HEMATOCRIT 24.6 % (42.0-52.0); HEMOGLOBIN 7.9 g/dl (14.0-17.9); LYMPHOCYTES # (AUTO) 0.6 X10'3 (1.1-4.8); LYMPHOCYTES % (AUTO) 6.6 % (21-51); MEAN CORPUSCULAR HEMOGLOBIN 31.1 PG (27.0-31.0); MEAN CORPUSCULAR VOLUME 97.2 FL (78-98); MEAN PLATELET VOLUME 8.4 FL (7.4-10.4); MONOCYTES # (AUTO) 0.9 X10'3 (0-0.9); MONOCYTES % (AUTO) 10.7 % (2-12); NEUTROPHILS # (AUTO) 6.5 X10'3 (1.8-7.7); NEUTROPHILS % (AUTO) 77.4 % (42-75); PLATELET COUNT 217 X10'3 (140-440); RED BLOOD COUNT 2.54 X10'6 (4.70-6.10); RED CELL DISTRIBUTION WIDTH 21.1 % (11.5-14.5); WHITE BLOOD COUNT 8.4 X10'3 (4.5-11.0)
[2021-07-01 06:49] LABS: ALANINE AMINOTRANSFERASE 16 U/L (12-78); ALBUMIN 2.5 G/DL (3.4-5.0); ALBUMIN/GLOBULIN RATIO 0.8 (1.1-1.5); ALKALINE PHOSPHATASE 180 IU/L (46-116); ANION GAP 4 (8-16); ASPARTATE AMINO TRANSFERASE 15 U/L (10-37); BILIRUBIN,TOTAL 1.3 MG/DL (0.1-1.0); BLOOD UREA NITROGEN 46 MG/DL (7-18); BUN/CREATININE RATIO 19.3 (5.4-32.0); CALCIUM 8.9 MG/DL (8.5-10.1); CHLORIDE 105 MMOL/L (99-107); CREATININE 2.38 MG/DL (0.60-1.10); GLUCOSE 99 MG/DL (70-104); POTASSIUM 3.6 MMOL/L (3.5-5.1); SODIUM 136 MMOL/L (135-145); TOTAL CARBON DIOXIDE 27.5 MMOL/L (24-32); TOTAL PROTEIN 5.8 G/DL (6.4-8.2); eGFR 27 ML/MIN
[2021-07-01 07:34] LABS: ANISOCYTOSIS 3+; PLATELET ESTIMATE NORMAL; POIKILOCYTOSIS FEW; POLYCHROMASIA 2+
[2021-07-01 07:37] LABS: HEMOGLOBIN A1C 6.3 % (4.5-6.2)
[2021-07-01] MEDS: potassium chloride 10mEq ER tablet PO SCH (08:17)
[2021-07-01] MEDS: atorvastatin 20mg tablet PO SCH (08:17)
[2021-07-01] MEDS: ferrous sulfate 325mg tablet PO SCH ×2 (08:17→20:45)
[2021-07-01] MEDS: docusate sod 100mg capsule PO SCH ×2 (08:18→20:44)
[2021-07-01] MEDS: amiodarone 200mg tablet PO SCH (08:18)
[2021-07-01] MEDS: carVEDilol 12.5mg tablet PO SCH (08:19)
[2021-07-01] MEDS: furosemide 40mg/4ml inj IV SCH ×2 (08:19→20:44)
--- NOTE | 2021-07-01 12:00 | NUR ---
Paged Dr. Michaud to inquire about continued NPO order and GI procedure plan.
[2021-07-01] MEDS ORDERED: ondansetron 4mg rapidly disintigrating tab PO PRN (13:00)
[2021-07-01] MEDS ORDERED: MIDAZolam 1 MG/ML 5ML VIAL ONE (14:00)
[2021-07-01] MEDS ORDERED: fentaNYL/PF 50MCG/1 ML 2ML syringe ONE (14:00)
[2021-07-01] MEDS ORDERED: LIDOcaine Viscous 15ml cup ONE (14:00)
--- NOTE | 2021-07-01 17:00 | NUR ---
Student documentation: I have reviewed and agree with all interventions, assessments performed and documented by Holly LAZCANO. Student Medication Administration: For this medication-pass time frame, all medication were reviewed, dispensed, administered and documented per hospital policy by Holly LAZCANO.
--- NOTE | 2021-07-01 18:11 | NUR ---
Patient in room PCU 3013. I have received report from CARMEN SHUKLA and had the opportunity to ask questions and assume patient care.
--- NOTE | 2021-07-01 18:58 | NUR ---
Problems reprioritized. Patient report given, questions answered & plan of care reviewed with Lidia SHUKLA. Pt content sitting in bed eating dinner.
[2021-07-01] MEDS: lisinopril 2.5mg tablet PO SCH (20:47)
[2021-07-01] MEDS ORDERED: Melatonin 3mg tablet PO SCH (21:00)
[2021-07-02 02:00] VITALS: BP 105/44
[2021-07-02] MEDS: pantoprazole 40MG/NS 100ML BAG 100 ML IV SCH ×2 (05:14→11:00)
--- NOTE | 2021-07-02 05:54 | NUR ---
Problems reprioritized. Patient report given, questions answered & plan of care reviewed with EULA SHUKLA. Addendum: 07/02/21 at 0633 by Lidia Alvarado RN Problems reprioritized. Patient report given, questions answered & plan of care reviewed with PATRICK SHUKLA.
[2021-07-02 06:00] VITALS: BP 123/50
[2021-07-02 06:38] LABS: BASOPHILS % (AUTO) 0.6 % (0-1); EOSINOPHILS # (AUTO) 0.3 X10'3 (0-0.9); EOSINOPHILS % (AUTO) 4.6 % (0-6); HEMATOCRIT 26.1 % (42.0-52.0); HEMOGLOBIN 8.3 g/dl (14.0-17.9); LYMPHOCYTES # (AUTO) 0.4 X10'3 (1.1-4.8); LYMPHOCYTES % (AUTO) 6.3 % (21-51); MEAN CORPUSCULAR HEMOGLOBIN 31.3 PG (27.0-31.0); MEAN CORPUSCULAR VOLUME 97.8 FL (78-98); MEAN PLATELET VOLUME 8.3 FL (7.4-10.4); MONOCYTES # (AUTO) 0.8 X10'3 (0-0.9); NEUTROPHILS % (AUTO) 76.5 % (42-75); PLATELET COUNT 218 X10'3 (140-440); RED BLOOD COUNT 2.67 X10'6 (4.70-6.10); RED CELL DISTRIBUTION WIDTH 21.7 % (11.5-14.5); WHITE BLOOD COUNT 6.5 X10'3 (4.5-11.0)
[2021-07-02 06:44] LABS: CHLORIDE 109 MMOL/L (99-107); GLUCOSE 94 MG/DL (70-104); POTASSIUM 4.3 MMOL/L (3.5-5.1); SODIUM 147 MMOL/L (135-145); TOTAL CARBON DIOXIDE 28.5 MMOL/L (24-32)
[2021-07-02 06:45] LABS: ALANINE AMINOTRANSFERASE 17 U/L (12-78); ALBUMIN 2.7 G/DL (3.4-5.0); ALBUMIN/GLOBULIN RATIO 0.8 (1.1-1.5); ALKALINE PHOSPHATASE 164 IU/L (46-116); ANION GAP 10 (8-16); ASPARTATE AMINO TRANSFERASE 16 U/L (10-37); BILIRUBIN,TOTAL 1.4 MG/DL (0.1-1.0); BLOOD UREA NITROGEN 43 MG/DL (7-18); BUN/CREATININE RATIO 20.2 (5.4-32.0); CALCIUM 8.7 MG/DL (8.5-10.1); CREATININE 2.13 MG/DL (0.60-1.10); TOTAL PROTEIN 6.2 G/DL (6.4-8.2); eGFR 31 ML/MIN
--- NOTE | 2021-07-02 06:51 | NUR ---
Patient in room PCU 3013. I have received report from Lidia SHUKLA and had the opportunity to ask questions and assume patient care.
[2021-07-02] MEDS: potassium chloride 10mEq ER tablet PO SCH (07:44)
[2021-07-02] MEDS: carVEDilol 12.5mg tablet PO SCH (07:45)
[2021-07-02] MEDS: amiodarone 200mg tablet PO SCH (07:45)
[2021-07-02] MEDS: atorvastatin 20mg tablet PO SCH (07:45)
[2021-07-02] MEDS: ferrous sulfate 325mg tablet PO SCH (07:45)
[2021-07-02] MEDS: furosemide 40mg/4ml inj IV SCH (07:46)
[2021-07-02 07:50] LABS: PLATELET ESTIMATE NORMAL
[2021-07-02 07:51] LABS: HYPOCHROMASIA 1+; POLYCHROMASIA 2+
[2021-07-02 07:52] LABS: ANISOCYTOSIS 3+; SCHISTOCYTES FEW; TARGET CELLS FEW; TEAR DROP CELLS FEW
[2021-07-02] MEDS: docusate sod 100mg capsule PO SCH (08:00)
[2021-07-02] MEDS ORDERED: DEXL60CA3 PO (10:52)
[2021-07-02] MEDS ORDERED: FURO-149 PO (10:52)
[2021-07-02 11:00] VITALS: BP 100/62
--- NOTE | 2021-07-02 11:33 | NUR ---
Page Sent PAGER ID: [phone] MESSAGE: [phone] lizet Babin. please call me about pts discharge as soon as you can, in regards to a low bp. thanks
--- NOTE | 2021-07-02 11:47 | NUR ---
Page Sent PAGER ID: [phone] MESSAGE: [phone] lizet Perez, manual BP was 100/62. would you like pt to still discharge?
--- NOTE | 2021-07-02 11:50 | NUR ---
all discharge info was gone over with pt with no questions. erica was DC and Addendum: 07/02/21 at 1151 by Indra Marinelli RN all discharge info was gone over with pt with no questions. IV was DC and intact. Pt has a ride from friend and was wheeled down to [facility]. Pt is stable for discharge.
--- NOTE | 2021-07-02 12:10 | NUR ---
all discharge info was gone over with pt with no questions. IV was DC and intact. Pt has a ride from friend and was wheeled down to lobby. Pt is stable for discharge.
== END 2021-07-02 12:10 | disposition home or self-care (01) | DRG 291 ==
LOC: ER 12:38 → ED HOLD 16:01 → UNDOADMIN 16:01 → PCU 3S 16:04 → ED HOLD 19:35
PROVIDERS: ADMIT Family Medicine; ATTEND Family Medicine
PROC: 30233N1 Transfusion of Nonautologous Red Blood Cells into Peripheral Vein, Percutaneous Approach (ICD-10-PCS; 2021-06-30)
PROC: 0DJ08ZZ Inspection of Upper Intestinal Tract, Via Natural or Artificial Opening Endoscopic (ICD-10-PCS; principal; 2021-07-01)
DX: I50.23 Acute on chronic systolic (congestive) heart failure (principal); K29.71 Gastritis, unspecified, with bleeding; J96.00 Acute respiratory failure, unspecified whether with hypoxia or hypercapnia; N18.4 Chronic kidney disease, stage 4 (severe); I48.91 Unspecified atrial fibrillation; E11.22 Type 2 diabetes mellitus with diabetic chronic kidney disease; I25.10 Atherosclerotic heart disease of native coronary artery without angina pectoris; J44.9 Chronic obstructive pulmonary disease, unspecified; D50.0 Iron deficiency anemia secondary to blood loss (chronic); Z79.01 Long term (current) use of anticoagulants; Z79.899 Other long term (current) drug therapy; Z86.79 Personal history of other diseases of the circulatory system; Z87.891 Personal history of nicotine dependence; Z95.1 Presence of aortocoronary bypass graft; Z88.8 Allergy status to other drugs, medicaments and biological substances; Z95.0 Presence of cardiac pacemaker; Z82.3 Family history of stroke; Z82.49 Family history of ischemic heart disease and other diseases of the circulatory system; Z84.89 Family history of other specified conditions
CPT/HCPCS: 36415; 36430; 43235; 71045; 80053; 81003; 82272; 83036; 83690; 83735; 83880; 84484; 85008; 85025; 85610; 85730; 86885; 86900; 86901; 86920; 87081; 93005; 93970; 99152; 99285; A4620; C9113; G0378; J1940; J2250; J3010; J7040; P9016

== ENCOUNTER 2021-08-18 14:16 | Emergency (ER) | payer MEDICARE, MEDICAID ==
[~2021-08-18] VITALS: Ht 182.9 cm; Wt 88.2 kg
[~2021-08-18 14:16] MED LIST changes: -CLOB15CR4 TOP; +DEXL60CA3 PO; +FERR-116 PO; -PANT-47 PO; +POTA-188 PO; -POTA10TA10 PO; -RIVA20TA PO
[2021-08-18 15:15] LABS: BASOPHILS % (AUTO) 0.6 % (0-1); EOSINOPHILS # (AUTO) 0.4 X10'3 (0-0.9); EOSINOPHILS % (AUTO) 5.3 % (0-6); HEMATOCRIT 32.9 % (42.0-52.0); HEMOGLOBIN 10.9 g/dl (14.0-17.9); LYMPHOCYTES # (AUTO) 0.5 X10'3 (1.1-4.8); LYMPHOCYTES % (AUTO) 7.5 % (21-51); MEAN CORPUSCULAR HEMOGLOBIN 31.6 PG (27.0-31.0); MEAN CORPUSCULAR VOLUME 95.8 FL (78-98); MEAN PLATELET VOLUME 9.7 FL (7.4-10.4); MONOCYTES # (AUTO) 0.6 X10'3 (0-0.9); MONOCYTES % (AUTO) 9.7 % (2-12); NEUTROPHILS # (AUTO) 5.1 X10'3 (1.8-7.7); NEUTROPHILS % (AUTO) 76.9 % (42-75); PLATELET COUNT 165 X10'3 (140-440); RED BLOOD COUNT 3.44 X10'6 (4.70-6.10); RED CELL DISTRIBUTION WIDTH 19.7 % (11.5-14.5); WHITE BLOOD COUNT 6.6 X10'3 (4.5-11.0)
[2021-08-18 15:30] LABS: ALANINE AMINOTRANSFERASE 19 U/L (12-78); ALBUMIN 3.1 G/DL (3.4-5.0); ALBUMIN/GLOBULIN RATIO 0.8 (1.1-1.5); ALKALINE PHOSPHATASE 204 IU/L (46-116); ANION GAP 11 (8-16); ASPARTATE AMINO TRANSFERASE 18 U/L (10-37); BILIRUBIN,TOTAL 1.4 MG/DL (0.1-1.0); BLOOD UREA NITROGEN 36 MG/DL (7-18); BUN/CREATININE RATIO 17.6 (5.4-32.0); CALCIUM 8.8 MG/DL (8.5-10.1); CHLORIDE 107 MMOL/L (99-107); CREATININE 2.05 MG/DL (0.60-1.10); GLUCOSE 95 MG/DL (70-104); POTASSIUM 4.8 MMOL/L (3.5-5.1); SODIUM 144 MMOL/L (135-145); TOTAL CARBON DIOXIDE 26.4 MMOL/L (24-32); TOTAL PROTEIN 7.1 G/DL (6.4-8.2); eGFR 32 ML/MIN
[2021-08-18 15:58] LABS: PLATELET ESTIMATE NORMAL
[2021-08-18 15:59] LABS: ANISOCYTOSIS 2+; HYPOCHROMASIA 1+; POLYCHROMASIA 1+; TARGET CELLS FEW
[2021-08-18 16:00] LABS: BURR CELLS 1+; SCHISTOCYTES FEW
[2021-08-18] MEDS ORDERED: furosemide 10 MG/1 ML 10ml inj IV ONE ×2 (16:00→16:05)
[2021-08-18] MEDS ORDERED: furosemide 20 MG/2 ML vial IV ONE (16:05)
--- NOTE | 2021-08-18 18:16 | NUR ---
anne/child called and made aware that patient is ready to be dc'd home.
[2021-08-18 18:56] VITALS: BP 127/77
== END 2021-08-18 18:58 | disposition home or self-care (01) ==
LOC: ER 14:17
DX: R60.0 Localized edema (principal); I50.9 Heart failure, unspecified; J44.9 Chronic obstructive pulmonary disease, unspecified; I48.91 Unspecified atrial fibrillation; I25.10 Atherosclerotic heart disease of native coronary artery without angina pectoris; E11.9 Type 2 diabetes mellitus without complications; Z86.2 Personal history of diseases of the blood and blood-forming organs and certain disorders involving the immune mechanism; Z95.0 Presence of cardiac pacemaker; Z98.890 Other specified postprocedural states; Z72.89 Other problems related to lifestyle; Z88.8 Allergy status to other drugs, medicaments and biological substances; Z79.899 Other long term (current) drug therapy
CPT/HCPCS: 36415; 71045; 80053; 83880; 84484; 85008; 85025; 93005; 96374; 99285; J1940

== ENCOUNTER 2021-09-06 12:55 | Emergency (ER) | payer MEDICARE, MEDICAID ==
[~2021-09-06] VITALS: Ht 182.9 cm; Wt 94.8 kg
[2021-09-06 14:30] LABS: BASOPHILS # (AUTO) 0.1 X10'3 (0-0.2); BASOPHILS % (AUTO) 1.1 % (0-1); EOSINOPHILS # (AUTO) 0.3 X10'3 (0-0.9); EOSINOPHILS % (AUTO) 4.6 % (0-6); HEMATOCRIT 33.3 % (42.0-52.0); HEMOGLOBIN 11.1 g/dl (14.0-17.9); LYMPHOCYTES # (AUTO) 0.5 X10'3 (1.1-4.8); LYMPHOCYTES % (AUTO) 7.1 % (21-51); MEAN CORPUSCULAR HEMOGLOBIN 31.8 PG (27.0-31.0); MEAN CORPUSCULAR HGB CONC 33.3 g/dL (33.0-36.5); MEAN CORPUSCULAR VOLUME 95.3 FL (78-98); MEAN PLATELET VOLUME 9.3 FL (7.4-10.4); MONOCYTES # (AUTO) 0.7 X10'3 (0-0.9); MONOCYTES % (AUTO) 11.1 % (2-12); NEUTROPHILS # (AUTO) 4.9 X10'3 (1.8-7.7); NEUTROPHILS % (AUTO) 76.1 % (42-75); PLATELET COUNT 175 X10'3 (140-440); RED CELL DISTRIBUTION WIDTH 19.4 % (11.5-14.5); WHITE BLOOD COUNT 6.5 X10'3 (4.5-11.0)
[2021-09-06 14:45] LABS: MAGNESIUM 2.5 MG/DL (1.5-2.4)
[2021-09-06 14:50] LABS: ACANTHOCYTES 1+; ANISOCYTOSIS 2+; PLATELET ESTIMATE NORMAL; POIKILOCYTOSIS 1+; TARGET CELLS FEW
[2021-09-06 14:51] LABS: SCHISTOCYTES FEW
[2021-09-06] MEDS ORDERED: furosemide 10 MG/1 ML 10ml inj IV ONE (14:55)
[2021-09-06] MEDS ORDERED: furosemide 20 MG/2 ML vial IV ONE (14:55)
[2021-09-06 15:10] LABS: ALANINE AMINOTRANSFERASE 22 U/L (12-78); ALBUMIN 3.1 G/DL (3.4-5.0); ALBUMIN/GLOBULIN RATIO 0.7 (1.1-1.5); ALKALINE PHOSPHATASE 202 IU/L (46-116); ANION GAP 9 (8-16); ASPARTATE AMINO TRANSFERASE 17 U/L (10-37); BILIRUBIN,TOTAL 1.5 MG/DL (0.1-1.0); BLOOD UREA NITROGEN 47 MG/DL (7-18); BUN/CREATININE RATIO 20.3 (5.4-32.0); CALCIUM 9.4 MG/DL (8.5-10.1); CHLORIDE 105 MMOL/L (99-107); CREATININE 2.32 MG/DL (0.60-1.10); GLUCOSE 95 MG/DL (70-104); POTASSIUM 4.2 MMOL/L (3.5-5.1); SODIUM 140 MMOL/L (135-145); TOTAL CARBON DIOXIDE 25.9 MMOL/L (24-32); TOTAL PROTEIN 7.4 G/DL (6.4-8.2); eGFR 28 ML/MIN
[2021-09-06 15:58] VITALS: BP 109/50
== END 2021-09-06 16:01 | disposition home or self-care (01) ==
LOC: ER 12:56
DX: I50.9 Heart failure, unspecified (principal); R06.02 Shortness of breath; M79.89 Other specified soft tissue disorders; I48.91 Unspecified atrial fibrillation; I25.10 Atherosclerotic heart disease of native coronary artery without angina pectoris; J44.9 Chronic obstructive pulmonary disease, unspecified; E11.9 Type 2 diabetes mellitus without complications; Z86.2 Personal history of diseases of the blood and blood-forming organs and certain disorders involving the immune mechanism; Z95.0 Presence of cardiac pacemaker; Z98.890 Other specified postprocedural states; Z72.89 Other problems related to lifestyle; Z88.8 Allergy status to other drugs, medicaments and biological substances; Z79.899 Other long term (current) drug therapy
CPT/HCPCS: 36415; 71046; 80053; 83735; 83880; 84484; 85008; 85025; 93005; 96374; 99285; J1940